=== PATIENT | male | born 1990 | race Caucasian/White ===

== ENCOUNTER 2016-09-15 06:04 | Emergency (ER) | payer OTHER ==
[2016-09-15] VITALS (10 sets, daily range): BP systolic 121–169; BP diastolic 64–87
[~2016-09-15] VITALS: Ht 170.2 cm; Wt 74.8 kg
[~2016-09-15 06:04] MED LIST: BACTRIM DS TAB1 EAC1 ORAL; CYCLOBENZAPRINE10 MG ORAL; IBUPROFEN600 MG ORAL; KEFLEX500 MG ORAL; NKM
[2016-09-15] MEDS ORDERED: Oxycodone/Acetaminophen 5-325 ORAL ONE (06:30)
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
[2016-09-15] MEDS ORDERED: Ketamine 500mg Inj IV ONE (07:15)
[2016-09-15] MEDS ORDERED: NORCO 5-325 TA1 EACH ORAL (07:48)
--- NOTE | 2016-09-15 08:33 | Diagnostic Imaging Report ---
Indications: Status post closed reduction left radial fracture Technique: 2 views left forearm at 08 10 Findings: Comparison: 0659 Angulation of comminuted fracture of the distal radial diaphysis has decreased. Persistent complete bone width volar displacement of distal fracture fragment persists, now with at least 1 cm of overriding. Widening of the distal radioulnar and ulnocarpal joints persists. Ulnar styloid fracture not excludable. Fiberglass splint has been placed. IMPRESSION: Inadequate closed reduction of left distal radial fracture, distal radioulnar and ulnocarpal joint disruptions
--- NOTE | 2016-09-15 08:37 | Diagnostic Imaging Report ---
Indications: Left forearm and wrist injury, pain and deformity technique: 3 views left wrist, 2 views left forearm Findings: Comparison: None There is a comminuted transverse fracture through the distal radial diaphysis. Distal fracture fragment demonstrates greater than bone with volar displacement, significant dorsal angulation, and approximately 2 cm overriding. Radiocarpal articulation intact. The distal ulna has been displaced in a volar direction and distally relative to the distal radius and carpus. The distal radioulnar and ulnocarpal joints have been disrupted. Small osseous density compatible fracture fragment projects dorsal ulnar to the distal ulna. Intercarpal and carpometacarpal joints intact. Surrounding soft tissues are swollen. No gas or foreign body. IMPRESSION: Comminuted, displaced, angulated fracture of the distal aspect of the left radial diaphysis, apparently closed Dislocation of distal radial ulnar and ulnocarpal joints with volar and distal displacement of the ulna as described Probable displaced fracture of the ulnar styloid, apparently closed
[2016-09-15] MEDS ORDERED: Metoclopramide 10mg/2ml Inj IVP ONE (10:45)
--- NOTE | 2016-09-15 11:28 | Diagnostic Imaging Report ---
Indication: Chest pain Technique: Single portable AP view of the chest. Findings: Comparison: None. The bones and extra pulmonary soft tissues, cardiomediastinal silhouette, pulmonary vasculature and parenchyma, and pleural surfaces are unremarkable. IMPRESSION: Negative portable AP chest .
== END 2016-09-15 12:17 ==
LOC: EMR 06:45
DX: S52.592A Other fractures of lower end of left radius, initial encounter for closed fracture (principal); S63.075A Dislocation of distal end of left ulna, initial encounter; S70.12XA Contusion of left thigh, initial encounter; S70.11XA Contusion of right thigh, initial encounter; V43.52XA Car driver injured in collision with other type car in traffic accident, initial encounter; Y92.414 Local residential or business street as the place of occurrence of the external cause; R21 Rash and other nonspecific skin eruption
CPT/HCPCS: 25605; 71010; 73090; 73110; 96374; 96375; 99284; J2405; J2765; J3490